=== PATIENT | male | born 1985 | race Caucasian/White ===

== ENCOUNTER 2016-11-29 09:57 | Emergency (ER) | payer BC ==
[2016-11-29 10:10] VITALS: BP 105/73
--- NOTE | 2016-11-29 10:38 | UC ---
Throat Pain/Nasal Porter HPI - HPI Summary HPI Summary: nasal congestion x 3 days + sinus pressure, pnd, + fever, chills, body aches no cough - History of Current Complaint Chief Complaint: UCRespiratory Stated Complaint: SINUS,SORE THROAT,NAUSEA Time Seen by Provider: 11/29/16 10:11 Hx Obtained From: Patient Onset/Duration: Gradual Onset, Lasting Days - 3, Still Present Severity: Moderate Pain Intensity: 4 Pain Scale Used: Adult Non Verbal Cough: None Associated Signs & Symptoms: Positive: Sinus Discomfort, Nasal Discharge, Fever. Negative: Drooling, Wheezing, Hoarseness, Rash - Allergies/Home Medications Allergies/Adverse Reactions: Allergies Allergy/AdvReac Type Severity Reaction Status Date / Time Penicillins Allergy Unknown Verified 11/29/16 10:03 Reaction Details Home Medications: Home Medications Dextromethorphan-Phenylephrine [Theraflu Severe Cold Dayt] 1 dose PO BID PRN [History Confirmed 11/29/16] Famciclovir [Famvir] 250 mg PO BID 11/29/16 [History Confirmed 11/29/16] PMH/Surg Hx/FS Hx/Imm Hx Previously Healthy: Yes - Surgical History Surgical History: None - Family History Known Family History: Negative: Diabetes - Social History Alcohol Use: Occasionally Substance Use Type: None Smoking Status (MU): Current Some Day Smoker Type: Cigars, Smokeless Tobacco Amount Used/How Often: occasional use Review of Systems Constitutional: Fever, Chills, Fatigue Skin: Negative Eyes: Negative ENT: Nasal Discharge, Sinus Congestion Respiratory: Negative Cardiovascular: Negative Gastrointestinal: Negative Genitourinary: Negative Motor: Negative Neurovascular: Negative Musculoskeletal: Negative Neurological: Negative Psychological: Negative All Other Systems Reviewed And Are Negative: Yes Physical Exam Triage Information Reviewed: Yes Appearance: Well-Appearing, No Pain Distress, Well-Nourished Vital Signs: Initial Vital Signs Temp 98.4 F 11/29/16 10:05 Pulse 71 11/29/16 10:05 Resp 16 11/29/16 10:05 BP 105/73 11/29/16 10:05 Pulse Ox 98 11/29/16 10:05 Vital Signs Reviewed: Yes Eyes: Positive: Conjunctiva Clear ENT: Positive: Normal ENT inspection, Hearing grossly normal, Pharynx normal, Nasal congestion, TMs normal. Negative: Nasal drainage Neck: Positive: Supple, Nontender, No Lymphadenopathy Respiratory: Positive: Chest non-tender, Lungs clear, Normal breath sounds Cardiovascular: Positive: RRR, No Murmur, Pulses Normal Skin Exam: Normal Throat Pain/Nasal Course/Dx - Differential Dx/Diagnosis Provider Diagnoses: viral illness. uri Discharge - Discharge Plan Condition: Stable Disposition: HOME Patient Education Materials: Upper Respiratory Infection (ED) Referrals: Claudette Tony MD [Medical Doctor] - Additional Instructions: VIRAL ILLNESS NO NEED FOR ABX AT THIS TIME CONT. WITH REST, LOST OF FLUID, OTC FLONASE NASAL SPRAY FOLLOW UP WITH YOUR PCP NEEDED
== END 2016-11-29 10:23 | disposition home or self-care (01) ==
LOC: UCCORT 09:57
DX: B34.9 Viral infection, unspecified (principal); J06.9 Acute upper respiratory infection, unspecified; Z88.0 Allergy status to penicillin; Z72.0 Tobacco use
CPT/HCPCS: 99201; G0463